=== PATIENT | female | born 1975 | race Caucasian/White ===

== ENCOUNTER → 2022-01-04 | Outpatient (CLI) | payer OTHER | LOC: MAMMO 11:23 | PROVIDERS: ATTEND Obstetrics & Gynecology | DX: Z12.31 Encounter for screening mammogram for malignant neoplasm of breast (principal) | CPT/HCPCS: 77067 ==

== ENCOUNTER → 2022-02-07 | Outpatient (CLI) | payer OTHER | LOC: US 07:57 | PROVIDERS: ATTEND Obstetrics & Gynecology | DX: Z12.31 Encounter for screening mammogram for malignant neoplasm of breast (principal) ==